=== PATIENT | female | born 1950 | race Caucasian/White ===

== ENCOUNTER 2016-04-09 07:37 | Emergency (ER) | payer OTHER ==
[~2016-04-09] VITALS: Wt 74.0 kg
--- NOTE | 2016-04-09 08:33 | ERD ---
ER Documentation Chief Complaint Date/Time DATE: 04/09/16 TIME: 08:31 Chief Complaint neck pain non traumatic for the past few days. unable to move. no motor def HPI 65 y/o female presents to ED for occipital headache and neck pain that started Saturday and Saturday. Pain was described as sharp and throbbing with a pain rate of 8/10 at this time. Also reports dizziness. Denies head trauma, loss of consciousness, blurry vision, photophobia, changes in vision, photophobia, facial pain, ear pain, throat pain, difficulty swallowing, neck pain, shoulder pain, chest pain, cough, hemoptysis, abdominal pain, loss of appetite, nausea, vomiting, hematochezia, diarrhea, constipation, urinary symptoms, bladder and bowel incontinences, extremity weakness, extremity tenderness, numbness or tingling sensation, difficulty walking, recent travel, recent exposure to illness, recent antibiotic use in the last 3 months, fever, chills. Allergy: NKA PMH: Hypertension, fibromyalgia. Family medical history: Denies Medications: Hydrochlorothiazide, baclofen, gabapentin. Surgery: Denies. Primary Social History: Not working at this time. Denies smoking, use of alcohol, use of illegal drugs. ROS All systems reviewed and are negative except as per history of present illness. Allergies Allergies: Coded Allergies: No Known Allergy (Unverified , 04/09/16) PMhx/Soc Hx Cardiac Disorders: Yes (htn) Hx Miscellaneous Medical Probl: Yes (fibromyalgia) Hx Alcohol Use: No Hx Substance Use: No Hx Tobacco Use: No Physical Exam Vitals Vital Signs Date Time Temp Pulse Resp B/P Pulse Ox O2 Delivery O2 Flow Rate FiO2 04/09/16 07:42 98.0 66 21 162/78 99 Physical Exam CONSTITUTIONAL: Well-appearing; well-nourished; in no apparent distress. HEAD: Normocephalic; atraumatic. EYES: Conjunctiva clear, sclera non-icteric, EOM intact. PERRL Ears: Hearing intact. EACs clear, TMs non-bulging, non-inflamed, translucent & mobile, ossicles normal appearance, No obstructions, no erythema, no discharges Nose: No obstructions. No polyps. No external lesions. Mucosa non-inflamed. No external lesions, septum and turbinates normal. No rhinorrhea. No discharges. Frontal sinus is non-tender to palpation. Maxillary sinus is non-tender to palpation. MOUTH: Moist mucous membranes, no lesion, no obstructions, no vesicles, no thrush, patent airway Throat: Uvula in midline. Right tonsil is +1 with no erythema, no exudate. Left tonsil is +1 with no erythema, no exudate. Tolerating secretions well. Good gag reflex. Patent airway. Neck: Supple, without lesions, bruits, or adenopathy. No mass. Thyroid non- enlarged and non-tender to palpation. Mild tenderness to left neck on range of motion and palpation. CHEST: Symmetrical chest. Respirations even and not labored. No retractions noted. CARDIOVASCULAR: Normal S1, S2. RRR. No murmurs, gallops. RESPIRATORY: Normal chest excursion with respiration; breath sounds clear and equal bilaterally; no wheezes, rhonchi, or rales. Breathing even and unlabored. Speaking in clear, full, and complete sentences w/ ease. ABDOMEN: Normal bowel sounds normal. Soft, round, non-distended, non-guarding, no tenderness, no rebound, no organomegaly, no masses, no pulsating abdominal mass. No hernia. No peritoneal signs. : No CVA tenderness. BACK: Symmetrical shoulder. Spine is midline without deformity, tenderness. No evidence of trauma or deformity. PELVIS: Stable pelvis. No evidence of trauma or deformity. MUSCULOSKELETAL: Normal gait and station. No misalignment, asymmetry, crepitation, defects, tenderness, masses, effusions, decreased range of motion, instability, atrophy or abnormal strength or tone in the head, neck, spine, ribs , pelvis or extremities. No calf tenderness. NEUROVASCULAR: Distal pulses are present. Pedal pulse are present, equal, and normal. Capillary refills are < 2 seconds. NEUROLOGIC: Alert and oriented x4. Speaks full and clear sentences. Cranial Nerves II-XII normal. Sensation to pain, touch, and proprioception normal. Grossly unremarkable. No neurologic deficits. Romberg test is negative. PSYCHOLOGICAL: The patients mood and manner are appropriate. No hallucinations , delusions. Not SI. Not HI. Has the capacity to decide for self SKIN: Normal for age and ethnicity; warm; dry; good turgor; no apparent lesions or exudates. No rashes, hives, discoloration. Intact. Results 24 hrs Current Medications Medications (Trade) Dose Ordered Sig/Larissa Route PRN Reason Start Time Stop Time Status Last Admin Dose Admin Acetaminophen (Tylenol Tab) 1,000 mg ONCE STAT PO 04/09/16 08:34 04/09/16 08:36 DC 04/09/16 08:43 Meclizine HCl (Antivert) 25 mg ONCE ONCE PO 04/09/16 09:00 04/09/16 09:01 DC 04/09/16 08:59 Procedures/MDM Examination: Unremarkable examination mild tenderness to left neck and posterior neck on range of motion and palpation. Disease process, medical treatment was explained to the patient and family member. They verbalized understanding and agreed with the diagnostic tests, medical treatment, and follow-up care. EKG: Sinus bradycardia with ventricular rate of 57 bpm. Also read by emergency room supervising physician. Radiology: CT of the brain: Negative. CT of cervical spine: Cervical spondylosis, with grade 1 anterolisthesis at C4-5 , and trace anterolisthesis at C3-4 and C7-T1. Treatment: Tylenol, meclizine. Re-evaluation: Denies headache, dizziness, neck pain, chest pain. Consultation: None. Differential diagnosis: Subarachnoid hemorrhage versus stroke versus migraine versus headache versus acute myocardial infarction versus chronic pain Medical decision makin65 y/o female presents to ED for occipital headache and neck pain that started Saturday and Saturday. Pain was described as sharp and throbbing with a pain rate of 8/10 at this time. Also reports dizziness. Medications prescribed are the following: Patient's complaint, the patient's history, patient's presentation, my physical findings, diagnostic test results, re-evaluation are consistent with my final diagnosis of Cervical spondylosis, with grade 1 anterolisthesis at C4-5, and trace anterolisthesis at C3-4 and C7- T1. Patient and family member are made aware of the side effects and adverse reactions of the medications prescribed. Instructed on when to seek emergent and medical attention in case allergic/anaphylactic reactions or severe side effects and or adverse reactions to medications. Patient and family member verbalized understanding. Patient instructed Instructed to follow-up with his PCP in 24-48 hours. PCP to refer patient to neurologist and pain management doctor in less than a week. Instructed to Call 911 for chest pain, shortness of breath. Advised to come back here in ED as soon as possible for severity of symptoms which includes but not limited to: any new symptoms; shortness of breath/difficulty of breathing; cardiovascular changes; severe gastrointestinal symptoms; signs and symptoms of bleeding and or infection; signs of compartment syndrome/neurovascular changes; neurological changes/deficits. Patient and family member verbalized understanding. Upon discharge, patient is alert and oriented x 4, speaks full and clear sentences, denies pain, has no neurological deficits, has no neurovascular deficits, difficulty of breathing. Breathing even and unlabored. Lung sounds are clear to auscultation. Not in distress. Appears comfortable. Ambulatory with steady gait. Appears satisfied with care provided here in ED. Departure Diagnosis: Primary Impression: Neck pain Condition: Stable Additional Instructions: Follow-up with PCP in the next 24-48 hours. PCP to refer patient to pain specialist in the next 24-48 hours. FER PUGH Apr 09, 2016 08:32
[2016-04-09] MEDS ORDERED: ACETAMINOPHEN 500 MG TAB PO STA (08:34)
[2016-04-09] MEDS ORDERED: MECLIZINE 12.5 MG TAB PO ONE (09:00)
--- NOTE | 2016-04-09 09:47 | RADRPT ---
PROCEDURE: CT brain without contrast CLINICAL INDICATION: Headache TECHNIQUE: CT of the brain without contrast was performed on a multidetector CT scanner, with multi planar reformats. One or more of the following dose reduction techniques were used: Automated expos ure control, adjustment in mA and / or kV according to patient size, use of iterative reconstructive technique. CTDIvol = 44 mGy; DLP = 630 mGy-cm. COMPARISON: None available FINDINGS: No acute intracranial hemorrhage is identified. No extra-axial fluid collection is seen. There is no mass effect. No midline shift is identified. Ventricles and sulci are within normal limits for size and configuration. The density of the brain is within normal limits. Roebrson-white differentiation is preserved. Osseous structures are unremarkable. Mastoid air cells and imaged paranasal sinuses grossly clear. IMPRESSION: Unremarkable noncontrast CT of the brain. RPTAT: VV .Anurag Chris MD, Date Time Electronically viewed and signed by .Anurag Chris MD, on 04/09/2016 09:46 .O/
--- NOTE | 2016-04-09 10:05 | RADRPT ---
PROCEDURE: CT cervical spine without contrast. CLINICAL INDICATION: Neck pain TECHNIQUE: CT of the cervical spine without contrast was performed on a multidetector CT scanner, w ith multiplanar reformats. One or more of the following dose reduction techniques were used: Automa mick exposure control, adjustment in mA and / or kV according to patient size, use of iterative recon structive technique. CTDIvol = 22 mGy and DLP = 476 mGy-cm. COMPARISON: None available. FINDINGS: No fracture or dislocation is identified. There is reversal of the lordosis of the cervical spine. There is grade 1 anterolisthesis at C4-5, and trace anterolisthesis at C3-4 and C7-T1. The vertebr al bodies are maintained in height. There are atlantoaxial joint degenerative changes and anterior spondylosis at C5-6 and C6-7. C2-3: The disc is maintained in height. There is post disk bulging with mild central canal stenosis . There is facet arthropathy without foraminal narrowing. C3-4: The disc is maintained in height. There is a posterior disk/osteophyte with mild to moderate central canal stenosis. There are uncovertebral osteophytes and facet arthropathy with mild right, moderate to severe left foraminal narrowing. C4-5: The disc is maintained in height. There is a posterior disk/osteophyte with mild to moderate central canal stenosis. There are uncovertebral osteophytes and facet arthropathy with moderate to severe right, mild left foraminal narrowing. C5-6: There is mild disk space narrowing. There is a posterior disk/osteophyte with mild moderate c entral canal stenosis. There are uncovertebral osteophytes and facet arthropathy with mild right, m ild-moderate left foraminal narrowing. C6-7: The disc is maintained in height. There is posterior disk bulging with mild central canal st enosis. There is mild facet arthropathy without foraminal narrowing. C7-T1: The disc is maintained in height. No disk bulge or herniation is seen. There is facet arthr opathy. There is no central canal stenosis or foraminal narrowing. IMPRESSION: 1. Reversal of the cervical lordosis, without fracture/dislocation identified. 2. Cervical spondylosis, with grade 1 anterolisthesis at C4-5, and trace anterolisthesis at C3-4 an d C7-T1. 3. Multilevel mild to moderate central canal stenoses, and multilevel foraminal narrowing outlined in detail above. RPTAT: VV .Anurag Chris MD, Date Time Electronically viewed and signed by .Anurag Chris MD, on 04/09/2016 10:05 .O/
[2016-04-09] MEDS ORDERED: CYCL-319 PO (10:24)
[2016-04-09] MEDS ORDERED: MECL12.574 PO (10:24)
== END 2016-04-09 10:32 | disposition home or self-care (01) ==
LOC: FTE 07:37
DX: M54.2 Cervicalgia (principal); I10 Essential (primary) hypertension; R51 Headache
CPT/HCPCS: 70470; 72125; 93005; Z7502; Z7610

== ENCOUNTER 2017-01-01 11:45 | Emergency (ER) | payer OTHER ==
[~2017-01-01] VITALS: Ht 162.6 cm; Wt 76.4 kg
[~2017-01-01 11:45] MED LIST: CYCL-319 PO; MECL12.574 PO
[2017-01-01 11:50] VITALS: Ht 162.6 cm; Wt 76.4 kg
--- NOTE | 2017-01-01 12:44 | ERD ---
ER Documentation Chief Complaint Chief Complaint right leg pain x 10 days; sent from her clinic HPI This is a 66-year-old female who presents the emergency department today complaining of pain in the back of her left knee for the past 10 days. Patient states she was sitting in a waiting room at another hospital and she felt a sharp pinch in the back of her knee and she is unsure if she got bit by something. States there is a "small ball" in the back of her knee. States that she was referred here to the emergency department by her clinic for an ultrasound. Denies any fevers or chills, calf tenderness. ROS All systems reviewed and are negative except as per history of present illness. Medications Home Meds Active Scripts Acetaminophen* (Tylophen*) 500 Mg Capsule, 1 CAP PO Q6H Y for PAIN AND OR ELEVATED TEMP, #30 CAP Prov:ADITI ALLEN PA-C 01/01/17 Naproxen* (Naprosyn*) 500 Mg Tablet, 500 MG PO BID Y for PAIN AND/OR INFLAMMATION, #30 TAB Prov:ADITI ALLEN PA-C 01/01/17 Meclizine Hcl* (Antivert*) 12.5 Mg Tab, 12.5 MG PO Q6H Y for DIZZINESS, #20 TAB Prov:PASILABANENDYAR F 04/09/16 Cyclobenzaprine Hcl* (Cyclobenzaprine Hcl*) 10 Mg Tablet, 10 MG PO Q8 Y for PAIN , #60 TAB Prov:PASILABANKLAR F 04/09/16 Allergies Allergies: Coded Allergies: No Known Allergy (Unverified , 01/01/17) PMhx/Soc Medical and Surgical Hx: pt denies Surgical Hx Hx Cardiac Disorders: Yes (htn) Hx Miscellaneous Medical Probl: Yes (fibromyalgia) Hx Alcohol Use: No Hx Substance Use: No Hx Tobacco Use: No Smoking Status: Never smoker Physical Exam Vitals Vital Signs Date Time Temp Pulse Resp B/P Pulse Ox O2 Delivery O2 Flow Rate FiO2 01/01/17 11:50 98.4 70 18 142/64 98 Physical Exam Const: NAD Head: Atraumatic Eyes: Normal Conjunctiva ENT: Normal External Ears, Nose and Mouth. Neck: Full range of motion..~ No meningismus. Resp: Clear to auscultation bilaterally Cardio: Regular rate and rhythm, no murmurs Abd: Soft, non tender, non distended. Normal bowel sounds Skin: No petechiae or rashes Back: No midline or flank tenderness Ext: right leg with no cyanosis, or edema. No calf tenderness. No erythema or warmth. Small 0.25 cm ball posterior aspect of knee with scabbing. Full active range of motion of knee joint Neur: Awake and alert Psych: Normal Mood and Affect Results 24 hrs Current Medications Medications (Trade) Dose Ordered Sig/Larissa Route PRN Reason Start Time Stop Time Status Last Admin Dose Admin Ibuprofen (Motrin) 600 mg ONCE ONCE PO 01/01/17 13:00 01/01/17 13:01 DC 01/01/17 13:22 DIAGNOSTIC IMAGING REPORT Patient: SUZETTE FINCH : 1950 Age: 66 Sex: F MR #: [id number] DOS: 01/01/17 0000 Ordering MD: ADITI ALLEN PA-C Location: [facility] Room/Bed: PROCEDURE: US Lower extremity Venous. CLINICAL INDICATION: Right leg pain and swelling TECHNIQUE: Multiple sonographic images of the right lower extremity deep venous system was obtained utilizing roberson scale, color-flow, compressive sonography and doppler imaging with augmentation. The images were reviewed on a PACS workstation. COMPARISON: None. FINDINGS: There is normal compressibility and flow within the right common femoral, deep femoral, superficial femoral and popliteal veins. Normal color flow is seen with respiratory variability and augmentation. IMPRESSION: No sonographic evidence for deep venous thrombosis in the right lower extremity. RPTAT: HPNM Physician Ruth Date Time Electronically viewed and signed by Physician Ruth on 01/01/2017 13 :28 / CC: ADITI ALLEN PA-C DIAGNOSTIC IMAGING REPORT Patient: SUZETTE FINCH : 1950 Age: 66 Sex: F MR #: [id number] DOS: 01/01/17 0000 Ordering MD: ADITI ALLEN PA-C Location: [facility] Room/Bed: PROCEDURE: Ultrasound soft tissue of the right knee CLINICAL INDICATION: Pain along the posterior aspect of the knee TECHNIQUE: Sonographic evaluation of the right knee was performed. Roberson scale imaging was performed in the sagittal and coronal planes. Images were reviewed on a high-resolution PACS workstation. COMPARISON: None available FINDINGS: There is no discrete mass or fluid collection within the posterior right knee in the area of palpable abnormality. The soft tissues are unremarkable in appearance. RPTAT: ZZ IMPRESSION: 1. No visualized discrete mass or fluid collection within the posterior right knee. 2. Note that a follow-up MRI of the right knee without contrast is recommended for additional evaluation as ultrasound can miss several pathology in the knee that may be contributing to posterior knee pain such as bone contusion, chondral injury, meniscus tears, or ligament tears. .Georgia Baeza MD MD Date Time Electronically viewed and signed by .Georgia Baeza MD, MD on 01/01/2017 14: 46 .T/ CC: ADITI ALLEN PA-C Procedures/MDM This a 66-year-old female who presents to the emergency department today for pain in the back of her right knee. [facility] [place] for an ultrasound to rule out a DVT and foreign body. Soft tissue ultrasound no visualized discrete mass or fluid collection within the posterior right knee. She is are unremarkable. Lower extremity venous ultrasound shows no evidence for deep venous thrombosis in right lower extremity. Symptoms at this time is consistent with leg pain of uncertain etiology. She is afebrile and otherwise well-appearing. Low suspicion for sepsis, cellulitis , deep space tracking infection, gout. There is no evidence of swelling or erythema or purulent drainage. Given Motrin here in the emergency department. Will be given a prescription for Naprosyn and Tylenol for home At this time the patient is stable for discharge and outpatient management. Patient should follow up with their PCP in the next 1-2 days. They may return to the emergency department sooner for any persistent or worsening of symptoms. Patient understood and agreed with the plan. Departure Diagnosis: Primary Impression: Pain of right leg Condition: ADITI Cote PA-C Jan 01, 2017 12:44
[2017-01-01] MEDS ORDERED: IBUPROFEN 600 MG TAB PO ONE (13:00)
--- NOTE | 2017-01-01 13:28 | RADRPT ---
PROCEDURE: US Lower extremity Venous. CLINICAL INDICATION: Right leg pain and swelling TECHNIQUE: Multiple sonographic images of the right lower extremity deep venous system was obtaine d utilizing barcenas scale, color-flow, compressive sonography and doppler imaging with augmentation. T he images were reviewed on a PACS workstation. COMPARISON: None. FINDINGS: There is normal compressibility and flow within the right common femoral, deep femoral, superficial femoral and popliteal veins. Normal color flow is seen with respiratory variability and augmentation . IMPRESSION: No sonographic evidence for deep venous thrombosis in the right lower extremity. RPTAT: HPNM Physician Ruth Date Time Electronically viewed and signed by Physician Ruth on 01/01/2017 13:28 /
--- NOTE | 2017-01-01 14:46 | RADRPT ---
PROCEDURE: Ultrasound soft tissue of the right knee CLINICAL INDICATION: Pain along the posterior aspect of the knee TECHNIQUE: Sonographic evaluation of the right knee was performed. Roberson scale imaging was perform ed in the sagittal and coronal planes. Images were reviewed on a high-resolution PACS workstation. COMPARISON: None available FINDINGS: There is no discrete mass or fluid collection within the posterior right knee in the area of palpabl e abnormality. The soft tissues are unremarkable in appearance. RPTAT: ZZ IMPRESSION: 1. No visualized discrete mass or fluid collection within the posterior right knee. 2. Note that a follow-up MRI of the right knee without contrast is recommended for additional evalua tion as ultrasound can miss several pathology in the knee that may be contributing to posterior knee pain such as bone contusion, chondral injury, meniscus tears, or ligament tears. .Georgia Baeza MD, Date Time Electronically viewed and signed by .Georgia Baeza MD, on 01/01/2017 14:46 .T/
[2017-01-01] MEDS ORDERED: NAPR-260 PO (15:05)
[2017-01-01] MEDS ORDERED: ACET500C5 PO (15:05)
== END 2017-01-01 15:12 | disposition home or self-care (01) ==
LOC: FTE 11:45
DX: M79.604 Pain in right leg (principal); I10 Essential (primary) hypertension
CPT/HCPCS: 76536; 93971; Z7502; Z7610

== ENCOUNTER 2017-02-12 14:50 | Emergency (ER) | payer OTHER ==
[~2017-02-12] VITALS: Ht 162.6 cm; Wt 72.0 kg
[~2017-02-12 14:50] MED LIST changes: +ACET500C5 PO; +NAPR-260 PO
[2017-02-12 14:55] VITALS: Ht 162.6 cm; Wt 72.0 kg
--- NOTE | 2017-02-12 17:37 | RADRPT ---
PROCEDURE: XR Hip. CLINICAL INDICATION: Pain TECHNIQUE: AP and frog lateral views of the right hip were performed. COMPARISON: None. FINDINGS: Two views of the right hip demonstrate no displaced fracture. Femoral head articulates anatomically with the acetabulum. There is no significant degenerate change. The bones are normally mineralize d. The soft tissues are unremarkable. IMPRESSION: 1. No acute fracture dislocation. 2. No significant degenerate change. RPTAT: HH .Erik Foster MD, Date Time Electronically viewed and signed by .Erik Foster MD, on 02/12/2017 17:36 .W/
--- NOTE | 2017-02-12 17:46 | RADRPT ---
PROCEDURE: XR Foot. CLINICAL INDICATION: Pain. TECHNIQUE: Three views of the right foot. COMPARISON: None available. FINDINGS: There is a fracture of the fifth metatarsal base. The medial extent of the fracture is not definitiv storm visualized. The joint spaces are preserved. IMPRESSION: 1. Fracture of the fifth metatarsal base. The medial extent of the fracture is not definitively vis ualized, but this could potentially represent a Still fracture. Referral to orthopedic surgery is re commended. RPTAT: HTAR .Fernando Monge MD, Date Time Electronically viewed and signed by .Fernando Monge MD, on 02/12/2017 17:46 .R/
--- NOTE | 2017-02-12 17:48 | RADRPT ---
PROCEDURE: XR Ankle. CLINICAL INDICATION: Right ankle pain. TECHNIQUE: Three views of the right ankle. COMPARISON: None available. FINDINGS: There is a fracture of the lateral malleolus. The ankle mortise appears intact in this nonstressed study. There are small dorsal and plantar calcaneal enthesophytes. There is soft tissue swelling over the lateral ankle. IMPRESSION: 1. Fracture of the lateral malleolus. RPTAT: HTAR .Fernando Monge MD, MD Date Time Electronically viewed and signed by .Fernando Monge MD, on 02/12/2017 17:47 .R/
[2017-02-12] MEDS ORDERED: IBUP-1542 PO (17:53)
[2017-02-12] MEDS ORDERED: HYDR-906 PO (17:53)
[2017-02-12] MEDS ORDERED: HYDROCODONE/APAP (5/325) TAB PO ONE (18:00)
--- NOTE | 2017-02-12 18:05 | ERD ---
ER Documentation Chief Complaint Chief Complaint rt foot pain s/p fall today , missed a step on stairs and fell , no k/o HPI This is a 66-year-old female that presents to the ER with right ankle and right foot pain after she fell earlier today. Patient was about to cook when she missed a step, twisted her ankle and fell down 3 stairs. Patient did not pass out she did not hit her head. This was strictly a mechanical fall. States that pain is severe and constant it is worse whenever she tries to bear weight on her right foot. She denies any numbness or tingling of her foot. She denies any weakness. She has not had any fevers or chills. ROS 12 point review of systems was done, all negative except per HPI. Medications Home Meds Active Scripts Hydrocodone/Acetaminophen ([place] 5-325 Tablet) 1 Each Tablet, 1 TAB PO Q6H Y for PAIN, #20 TAB Prov:CHITRA GRIFFITH 02/12/17 Ibuprofen* (Motrin*) 600 Mg Tab, 600 MG PO Q6, #30 TAB Prov:CHITRA GRIFFITH 02/12/17 Acetaminophen* (Tylophen*) 500 Mg Capsule, 1 CAP PO Q6H Y for PAIN AND OR ELEVATED TEMP, #30 CAP Prov:ADITI ALLEN PA-C 01/01/17 Naproxen* (Naprosyn*) 500 Mg Tablet, 500 MG PO BID Y for PAIN AND/OR INFLAMMATION, #30 TAB Prov:ADITI ALLEN PA-C 01/01/17 Meclizine Hcl* (Antivert*) 12.5 Mg Tab, 12.5 MG PO Q6H Y for DIZZINESS, #20 TAB Prov:FER PUGH 04/09/16 Cyclobenzaprine Hcl* (Cyclobenzaprine Hcl*) 10 Mg Tablet, 10 MG PO Q8 Y for PAIN , #60 TAB Prov:FER PUGH F 04/09/16 Allergies Allergies: Coded Allergies: No Known Allergy (Unverified , 01/01/17) PMhx/Soc Hx Cardiac Disorders: Yes (htn) Hx Miscellaneous Medical Probl: Yes (fibromyalgia) Hx Alcohol Use: No Hx Substance Use: No Hx Tobacco Use: No Smoking Status: Never smoker Physical Exam Vitals Vital Signs Date Time Temp Pulse Resp B/P Pulse Ox O2 Delivery O2 Flow Rate FiO2 02/12/17 18:45 98.7 02/12/17 14:55 98.1 77 18 169/71 98 Physical Exam GENERAL: The patient is well developed and appropriate for usual state of health , in no apparent distress. HEENT: Atraumatic CHEST: Clear to auscultation bilaterally. There are no rales, wheezes or rhonchi. HEART: Regular rate and rhythm. No murmurs, clicks, rubs or gallops. EXTREMITIES: Ankle-patient is not able to bear weight and ambulate without any pain. left ankle is without obvious asymmetry or deformity when compared to the right ankle. He has painful range of motion of the ankle. No obvious surface trauma, ecchymosis. Tenderness to the lateral malleolus. No bony tenderness to the medial malleolus. Anterior talofibular ligament, posterior talofibular ligament, calcaneofibular ligament NT and without swelling. Not tender or deformity of the midfoot or over the proximal fifth metatarsal, good dorsalis pedis and posterior tibial pulses and sensation to light touch is normal. Talar tilt test is negative for ligament laxity to valgus or varus stress. Negative anterior drawer.. Peroneal nerve is intact with strong eversion and plantarflexion. Negative squeeze test. Is tender to palpation to the base of the fifth metatarsal. Painful dorsiflexion and plantar flexion of the left foot. Patient is intact to the L4, L5, S1. Left Knee: Full and non painful ROM, not TTP. Left Hip: Patient has painful abduction and adduction of the left hip. there are no areas of ecchymosis or deformities. no redness or swelling NEURO: Alert and oriented SKIN: There is no apparent rash or petechia. The skin is warm and dry. Results 24 hrs Current Medications Medications (Trade) Dose Ordered Sig/Larissa Route PRN Reason Start Time Stop Time Status Last Admin Dose Admin Acetaminophen/ Hydrocodone Bitart ([place] (5/325)) 1 tab ONCE ONCE PO 02/12/17 18:00 02/12/17 18:01 DC 02/12/17 18:[address] [address] Radiology Main Line: [phone] DIAGNOSTIC IMAGING REPORT Patient: SUZETTE FINCH : 1950 Age: 66 Sex: F MR #: [id number] DOS: 02/12/17 0000 Ordering MD: CHITRA GRIFFITH PA-C Location: [facility] Room/Bed: PROCEDURE: XR Ankle. CLINICAL INDICATION: Right ankle pain. TECHNIQUE: Three views of the right ankle. COMPARISON: None available. FINDINGS: There is a fracture of the lateral malleolus. The ankle mortise appears intact in this nonstressed study. There are small dorsal and plantar calcaneal enthesophytes. There is soft tissue swelling over the lateral ankle. IMPRESSION: 1. Fracture of the lateral malleolus. RPTAT: HTAR .Fernando Monge MD, Date Time Electronically viewed and signed by .Fernando Monge MD, on 02/12/2017 17:47 .R/ CC: CHITRA GRIFFITH [place] [address] Radiology Main Line: [phone] DIAGNOSTIC IMAGING REPORT Patient: SUZETTE FINCH : 1950 Age: 66 Sex: F MR #: [id number] DOS: 02/12/17 0000 Ordering MD: CHITRA GRIFFITH PA-C Location: [facility] Room/Bed: PROCEDURE: XR Foot. CLINICAL INDICATION: Pain. TECHNIQUE: Three views of the right foot. COMPARISON: None available. FINDINGS: There is a fracture of the fifth metatarsal base. The medial extent of the fracture is not definitively visualized. The joint spaces are preserved. IMPRESSION: 1. Fracture of the fifth metatarsal base. The medial extent of the fracture is not definitively visualized, but this could potentially represent a Still fracture. Referral to orthopedic surgery is recommended. RPTAT: HTAR .Fernando Monge MD, MD Date Time Electronically viewed and signed by .Fernando Monge MD, MD on 02/12/2017 17:46 .R/ CC: CHITRA GRIFFITH [place] [address] Radiology Main Line: [phone] DIAGNOSTIC IMAGING REPORT Patient: SUZETTE FINCH : 1950 Age: 66 Sex: F MR #: [id number] DOS: 02/12/17 0000 Ordering MD: CHITRA GRIFFITH. PA-C Location: [facility] BEDS AT [facility] Room/Bed: PROCEDURE: XR Hip. CLINICAL INDICATION: Pain TECHNIQUE: AP and frog lateral views of the right hip were performed. COMPARISON: None. FINDINGS: Two views of the right hip demonstrate no displaced fracture. Femoral head articulates anatomically with the acetabulum. There is no significant degenerate change. The bones are normally mineralized. The soft tissues are unremarkable. IMPRESSION: 1. No acute fracture dislocation. 2. No significant degenerate change. RPTAT: HH .Erik Foster MD, MD Date Time Electronically viewed and signed by .Erik Foster MD, MD on 02/12/2017 17:36 .W/ CC: CHITRA GRIFFITH Procedures/MDM This is a 66-year-old female presents to the after she fell from 3 stairs. Patient does have a fracture over the lateral malleolus and the base of the fifth metatarsal. Patient was put in a posterior ankle splint neurovascularly intact before and after splint application. Patient was also given crutches. Patient will be sent home with rossi Sarabia. I gave her information for support specialist Dr. Herrera. I also told her that she may need an authorization from her primary care doctor. Patient needs to follow-up urgently with her primary care doctor within 1-2 days return to ER sooner if symptoms worsen. My medical decision making shared with the patient she understands and agrees with plan. Departure Diagnosis: Primary Impression: Foot fracture Additional Impression: Ankle fracture Condition: Stable Patient Instructions: Treating Ankle Fractures Referrals: [facility] YOU HAVE RECEIVED A MEDICAL SCREENING EXAM AND THE RESULTS INDICATE THAT YOU DO NOT HAVE A CONDITION THAT REQUIRES URGENT TREATMENT IN THE EMERGENCY DEPARTMENT. FURTHER EVALUATION AND TREATMENT OF YOUR CONDITION CAN WAIT UNTIL YOU ARE SEEN IN YOUR DOCTORS OFFICE WITHIN THE NEXT 1-2 DAYS. IT IS YOUR RESPONSIBILITY TO MAKE AN APPOINTMENT FOR FOLOW-UP CARE. IF YOU HAVE A PRIMARY DOCTOR --you should call your primary doctor and schedule and appointment IF YOU DO NOT HAVE A PRIMARY DOCTOR YOU CAN CALL OUR PHYSICIAN REFERRAL HOTLINE AT . IF YOU CAN NOT AFFORD TO SEE A PHYSICIAN YOU CAN CHOSE FROM THE FOLLOWING [facility] INSTITUTIONS: [facility] [address] [place] [address] [facility] [address] [place] [address] [facility] [address] [place] [address] [facility] Hours: Mon-Fri 9:00 AM - 5:00 PM Additional Instructions: Call your primary care doctor TOMORROW for an appointment during the next 1-2 days.See the doctor sooner or return here if your condition worsens before your appointment time. YOU MUST SEE AN ORTHOPEDIC DOCTOR SOON POSSIBLE! CHITRA GRIFFITH Feb 12, 2017 18:05
[2017-02-12 18:45] VITALS: TEMP 98.7
== END 2017-02-12 18:55 | disposition home or self-care (01) ==
LOC: FTE 14:50
DX: S92.351A Displaced fracture of fifth metatarsal bone, right foot, initial encounter for closed fracture (principal); S82.61XA Displaced fracture of lateral malleolus of right fibula, initial encounter for closed fracture; I10 Essential (primary) hypertension; W10.9XXA Fall (on) (from) unspecified stairs and steps, initial encounter; Y92.9 Unspecified place or not applicable
CPT/HCPCS: 29515; 73510; 73610; 73630; Z7502; Z7610